=== PATIENT | female | born 2005 | race African-American/Black ===

== ENCOUNTER 2023-02-18 08:32 | Emergency (ER) | payer OTHER ==
[2023-02-18 08:38] VITALS: BMI 21.7
[2023-02-18] MEDS ORDERED: SODIUM CHLORIDE 1,000 ML IV STA (10:03)
[2023-02-18] MEDS ORDERED: ONDANSETRON 4 MG/2 ML VIAL IVPUSH ONE (10:03)
[2023-02-18] MEDS ORDERED: ACETAMINOPHEN 1000 MG/100 ML BAG IVPB ONE (10:03)
[2023-02-18] MEDS ORDERED: FAMOTIDINE 20 MG/50 ML IVPB 20 MG/50 ML MG IVPB ONE ×2 (10:03→10:17)
[2023-02-18] MEDS ORDERED: ONDANSETRON 4 MG/2 ML VIAL ONE (10:17)
[2023-02-18] MEDS ORDERED: ACETAMINOPHEN INJECTION 100 ML IVPB ONE (10:17)
[2023-02-18 10:56] LABS: BASO % 0.3 % (0-2.0); HEMATOCRIT 45.5 % (32.4-45.2); HEMOGLOBIN 15.2 GM/dL (10.7-15.3); LYMPH % 13.3 % (8-40); MCH 29.2 pg (25.7-33.7); MCHC 33.4 g/dl (32.0-36.0); MEAN CELL VOLUME 87.4 fl (80-96); MEAN PLT VOLUME 7.8 fl (7.5-11.1); MONO % 6.3 % (3.8-10.2); NEUT % 80.1 % (42.8-82.8); PLATELET COUNT 249 10^3/uL (134-434); RDW 13.2 % (11.6-15.6); WHITE BLOOD COUNT 8.3 K/mm3 (4.0-10.0)
[2023-02-18 11:15] LABS: POTASSIUM 3.5 mmol/L (3.5-5.1)
[2023-02-18 11:17] LABS: CALCIUM 9.6 mg/dL (8.5-10.1)
[2023-02-18 11:18] LABS: ALBUMIN 4.2 g/dl (3.4-5.0); BLOOD UREA NITROGEN 10.6 mg/dL (7-18)
[2023-02-18 11:19] LABS: CREATININE 0.9 mg/dL (0.55-1.3)
[2023-02-18 11:22] LABS: BILIRUBIN,TOTAL 1.3 mg/dL (0.2-1); TOT PROT 8.4 g/dl (6.4-8.2)
[2023-02-18 12:08] LABS: EPI CELLS 17 /uL (0-25.1); HCG,QUALITATIVE URINE Negative; HYALINE CASTS 1 /uL (0-3.1); PH,URINE 6.5 (5.0-8.0); URINE APPEARANCE CLEAR; URINE BACTERIA 59 /uL (0-1359); URINE BILIRUBIN NEGATIVE (NEGATIVE); URINE COLOR YELLOW; URINE GLUCOSE (UA) NEGATIVE (NEGATIVE); URINE KETONE 4+ (NEGATIVE); URINE LEUK ESTERASE NEGATIVE (NEGATIVE); URINE NITRITE NEGATIVE (NEGATIVE); URINE PROTEIN 1+ (NEGATIVE); URINE RBC 119 /uL (0-23.9); URINE WBC 40 /uL (0-25.8)
[2023-02-18 13:25] VITALS: BP 102/58; PULSE 62; RESP 16; TEMP 98.5
== END 2023-02-18 13:24 | disposition home or self-care (01) ==
LOC: JER 08:32
PROC: 3E033GC Introduction of Other Therapeutic Substance into Peripheral Vein, Percutaneous Approach (ICD-10-PCS; principal; 2023-02-18)
PROC: 3E033NZ Introduction of Analgesics, Hypnotics, Sedatives into Peripheral Vein, Percutaneous Approach (ICD-10-PCS; 2023-02-18)
PROC: 3E033GC Introduction of Other Therapeutic Substance into Peripheral Vein, Percutaneous Approach (ICD-10-PCS; 2023-02-18)
DX: R10.84 Generalized abdominal pain (principal); R11.2 Nausea with vomiting, unspecified; R68.83 Chills (without fever); Z20.822 Contact with and (suspected) exposure to COVID-19
CPT/HCPCS: 0241U-QW; 36415; 80053; 81003; 83690; 84703; 85025; 87086; 93005; 93010; 99284-25

== ENCOUNTER 2024-10-04 17:18 | Inpatient (IN) | payer OTHER ==
[2024-10-04] MEDS ORDERED: ONDANSETRON 4 MG/2 ML VIAL ONE ×2 (18:44→20:35)
[2024-10-04] MEDS: ONDANSETRON 4 MG/2 ML VIAL IVPUSH ONE ×2 (18:50→20:42)
[2024-10-04] MEDS: SODIUM CHLORIDE 1,000 ML IV STA ×2 (19:06→19:57)
[2024-10-04 19:07] LABS: ABSOLUTE IMMATURE GRANULOCYTES 0.04 x10^3/uL (0.0-0.031); BASOPHILS # 0.02 x10^3/uL (0.01-0.08); EOSINOPHIL % 0.0 % (0.7-5.8); EOSINOPHILS # 0.00 x10^3/uL (0.04-0.36); MCHC 33.6 g/dl (32.2-35.5); MEAN CELL VOLUME 90.1 fl (79.4-94.8); MEAN PLT VOLUME 9.5 fl (9.4-12.3); MONOCYTE # 0.29 x10^3/uL (0.24-0.86); MONOCYTE % 2.9 % (4.7-12.5); RDW 11.9 % (12.1-16.5)
[2024-10-04 19:39] LABS: GLUCOSE,RANDOM 122.0 mg/dL (74-106)
[2024-10-04 19:40] LABS: TOT PROT 7.9 g/dl (6.4-8.2)
[2024-10-04 19:41] LABS: CO2 21.0 mmol/L (21-32)
[2024-10-04 19:42] LABS: ALK PHOS 69.0 U/L (40-150)
[2024-10-04 19:45] LABS: SGOT/AST 28.0 U/L (5-34); SGPT/ALT 21.0 U/L (0-55)
[2024-10-04 19:46] LABS: CREATININE 0.78 mg/dL (0.55-1.3)
[2024-10-04 20:06] LABS: HCV DIAGNOSTIC IN-HOUSE W/RFLX NON-REACTIVE (NONREACTIVE)
[2024-10-04 20:07] LABS: HIV INTERPRETATION NEGATIVE (NEGATIVE)
[2024-10-04] MEDS: morphine CARPU-JECT 4 MG/1 ML DISP.SYRIN IVPUSH ONE (20:41)
[2024-10-05] MEDS ORDERED: MORPHINE SULFATE 2 MG/ML SYRINGE ONE (02:05)
[2024-10-05 02:11] LABS: URINE APPEARANCE CLEAR; URINE BILIRUBIN NEGATIVE (NEGATIVE); URINE COLOR YELLOW; URINE GLUCOSE (UA) NEGATIVE (NEGATIVE)
[2024-10-05 02:12] LABS: URINE KETONE NEGATIVE (NEGATIVE); URINE NITRITE NEGATIVE (NEGATIVE); URINE PROTEIN NEGATIVE (NEGATIVE); URINE UROBILINOGEN 0.2 mg/dL (0.2-1.0)
[2024-10-05 02:13] LABS: EPI CELLS 9.5 /uL (0-25.1); HYALINE CASTS 0.12 /uL (0-3.1); URINE BACTERIA 206.3 /uL (0-1359); URINE LEUK ESTERASE NEGATIVE (NEGATIVE); URINE RBC 28.0 /uL (0-23.9); URINE WBC 15.3 /uL (0-25.8)
[2024-10-05] MEDS: SODIUM CHLORIDE 1,000 ML IV SCH ×2 (02:14→09:29)
[2024-10-05] MEDS: ONDANSETRON 4 MG/2 ML VIAL IVPUSH SCH (02:14)
[2024-10-05] MEDS ORDERED: MORPHINE SULFATE 2 MG/ML SYRINGE IVPUSH PRN (03:38)
[2024-10-05 03:54] VITALS: BMI 23.7
[2024-10-05] MEDS: KETOROLAC TROMETHAMINE 30 MG/1 ML VIAL IVPB PRN (04:01)
[2024-10-05] MEDS ORDERED: morphine CARPU-JECT 2 MG/1 ML DISP.SYRIN IVPUSH PRN ×2 (05:53→15:22)
[2024-10-05 08:12] LABS: ABSOLUTE IMMATURE GRANULOCYTES 0.05 x10^3/uL (0.0-0.031); BASOPHILS # 0.01 x10^3/uL (0.01-0.08); EOSINOPHIL % 0.1 % (0.7-5.8); EOSINOPHILS # 0.01 x10^3/uL (0.04-0.36); MCHC 33.3 g/dl (32.2-35.5); MEAN CELL VOLUME 90.3 fl (79.4-94.8); MEAN PLT VOLUME 9.3 fl (9.4-12.3); MONOCYTE # 1.15 x10^3/uL (0.24-0.86); MONOCYTE % 9.7 % (4.7-12.5); RDW 11.9 % (12.1-16.5)
[2024-10-05 08:37] LABS: GLUCOSE,RANDOM 101 mg/dL (74-106)
[2024-10-05 08:38] LABS: CO2 25 mmol/L (21-32); TOT PROT 6.4 g/dl (6.4-8.2)
[2024-10-05 08:43] LABS: CREATININE 0.80 mg/dL (0.55-1.3); SGOT/AST 22 U/L (5-34); SGPT/ALT 15 U/L (0-55)
[2024-10-05] MEDS: hydrOXYzine PAMOATE 25 MG CAPSULE (FP) PO SCH (10:06)
[2024-10-05] MEDS: ENOXAPARIN NA (PORCINE) 40 MG/0.4 ML DISP.SYRIN SQ SCH (10:06)
[2024-10-05] MEDS: FLUOXETINE HCL 40 MG, FLUOXETINE HCL 10 MG PO SCH (10:06)
[2024-10-05] MEDS: MAGNESIUM SULFATE IN WATER 2 GM/50 ML IVPB IVPB ONE (10:36)
[2024-10-05 12:20] LABS: ALK PHOS 55 U/L (40-150)
[2024-10-05] MEDS: ACETAMINOPHEN 1000 MG/100 ML BAG IVPB SCH (16:19)
[2024-10-05] MEDS: KETOROLAC TROMETHAMINE 15 MG/ML VIAL IVPB SCH (19:20)
[2024-10-06 08:40] LABS: MCHC 32.4 g/dl (32.2-35.5); MEAN CELL VOLUME 93.0 fl (79.4-94.8); MEAN PLT VOLUME 9.9 fl (9.4-12.3); RDW 12.1 % (12.1-16.5)
[2024-10-06 10:18] LABS: GLUCOSE,RANDOM 78.0 mg/dL (74-106); TOT PROT 5.7 g/dl (6.4-8.2)
[2024-10-06 10:19] LABS: CO2 23.0 mmol/L (21-32)
[2024-10-06 10:21] LABS: ALK PHOS 48.0 U/L (40-150)
[2024-10-06 10:23] LABS: SGOT/AST 19.0 U/L (5-34); SGPT/ALT 12.0 U/L (0-55)
[2024-10-06 10:24] LABS: CREATININE 0.81 mg/dL (0.55-1.3)
[2024-10-06] MEDS: ACETAMINOPHEN 325 MG TABLET (FP) PO SCH (14:32)
[2024-10-06] MEDS: POTASSIUM CHLORIDE TABS 20 MEQ TABLET.ER (FP) PO ONE (15:51)
[2024-10-06] MEDS: CELECOXIB 200 MG CAPSULE PO SCH (21:05)
[2024-10-07 05:43] VITALS: RESP 18
[2024-10-07 08:34] LABS: MCHC 32.2 g/dl (32.2-35.5); MEAN CELL VOLUME 91.6 fl (79.4-94.8); MEAN PLT VOLUME 9.8 fl (9.4-12.3); RDW 11.8 % (12.1-16.5)
[2024-10-07 08:57] LABS: GLUCOSE,RANDOM 75.0 mg/dL (74-106); TOT PROT 5.8 g/dl (6.4-8.2)
[2024-10-07 08:58] LABS: CO2 25.0 mmol/L (21-32)
[2024-10-07 08:59] LABS: ALK PHOS 47.0 U/L (40-150)
[2024-10-07 09:02] LABS: SGOT/AST 21.0 U/L (5-34); SGPT/ALT 15.0 U/L (0-55)
[2024-10-07 09:03] LABS: CREATININE 0.84 mg/dL (0.55-1.3)
[2024-10-07 11:09] VITALS: BP 124/88; PULSE 61; TEMP 98
== END 2024-10-07 11:09 | disposition home or self-care (01) | DRG 440 ==
LOC: JER 17:18 → JERBED 23:46 → OBSVTOIN 10-05 01:26 → J6S 10-05 03:49
PROVIDERS: ADMIT Hospitalist; ATTEND Internal Medicine
DX: K85.80 Other acute pancreatitis without necrosis or infection (principal); F41.8 Other specified anxiety disorders; F60.9 Personality disorder, unspecified; F64.0 Transsexualism; R11.2 Nausea with vomiting, unspecified
CPT/HCPCS: 36415; 74177-TC; 76705-TC; 80048; 80053; 80076; 81003; 83690; 83735; 84100; 84478; 84703; 85025; 85027; 86803; 87086; 87389; 99285-25; G0378; Q9967